=== PATIENT | female | born 1955 | race Asian ===

== ENCOUNTER 2018-11-04 04:15 | Inpatient (IN) | payer BC ==
[~2018-11-04] VITALS: Ht 170.2 cm; Wt 74.8 kg
--- NOTE | 2018-11-04 04:55 | NUR ---
Pt bib family tonight for c/o intermittent feverx1 week. States being treated for ca recently and a uti w/ abx use 2 weeks ago. C/o L flank pain and painful urination. Monitoring applied. Call light within reach. Awaiting md assessment.
[2018-11-04] MEDS ORDERED: ONDANSETRON 2MG/ML, 2ML ONE ×2 (05:25→06:45)
[2018-11-04] MEDS ORDERED: MORPHINE SULFATE 4 MG/ML, 1ML ONE (05:25)
[2018-11-04] MEDS ORDERED: ONDANSETRON 2MG/ML, 2ML IVPush ONE ×2 (05:30→07:00)
[2018-11-04] MEDS ORDERED: MORPHINE SULFATE 4 MG/ML, 1ML IVPush PRN (05:30)
[2018-11-04] MEDS ORDERED: SODIUM CHLORIDE FLUSH 10ML SYR IVF ONE (05:30)
[2018-11-04 05:49] LABS: BASOPHILS % (AUTO) 0 % (0-1); EOSINOPHILS % (AUTO) 1 % (1-7); LYMPHOCYTES # (AUTO) 0.43 x10^3/uL (1-3.4); LYMPHOCYTES % (AUTO) 5 % (22-44); MD NO; MEAN CORPUSCULAR HEMOGLOBIN 31.3 pg (27.0-34.8); MEAN CORPUSCULAR HGB CONC 33.2 g/dL (32.4-35.8); MEAN CORPUSCULAR VOLUME 94.2 fL (80-100); MEAN PLATELET VOLUME 7.2 fL (7.4-10.4); MONOCYTES # (AUTO) 0.45 x10^3/uL (0.2-0.8); MONOCYTES % (AUTO) 5 % (2-9); NEUTROPHILS # (AUTO) 8.55 x10^3/uL (1.8-6.8); NEUTROPHILS % (AUTO) 90 % (42-75); PLATELET COUNT 360 x10^3/uL (130-400); RED BLOOD COUNT 2.89 x10^6/uL (3.82-5.3); RED CELL DISTRIBUTION WIDTH 16.7 % (9.6-15.2)
[2018-11-04 05:52] LABS: MICROSCOPIC AUTO
[2018-11-04 05:54] LABS: CULTURE INDICATED? YES
[2018-11-04 05:58] LABS: ALANINE AMINOTRANSFERASE 14 U/L (12-78); ALBUMIN 3.4 g/dL (3.4-5.0); ANION GAP 7 mmol/L (5-15); CALCIUM 8.9 mg/dL (8.5-10.1); CHLORIDE 106 mmol/L (98-107); CREATININE 1.46 mg/dL (0.55-1.02)
[2018-11-04 06:07] LABS: ALKALINE PHOSPHATASE 124 U/L (45-117); BILIRUBIN,TOTAL 0.3 mg/dL (0.2-1.0)
[2018-11-04] MEDS ORDERED: CEFTRIAXONE PMX 1GM/50ML 50 ML ONE (06:25)
[2018-11-04] MEDS ORDERED: KETOROLAC 30 MG/1 ML ONE (06:25)
[2018-11-04] MEDS ORDERED: KETOROLAC 30 MG/1 ML IVPush ONE (06:30)
[2018-11-04] MEDS ORDERED: CEFTRIAXONE PMX 1GM/50ML 50 ML IV ONE (06:30)
--- NOTE | 2018-11-04 07:00 | NUR ---
RECEIVED REPORT FROM SARA. PT SLEEPING RESP EVEN AND UNLABORED. GAVE FREDDIE CHAIR TO SLEEP.
--- NOTE | 2018-11-04 07:16 | NUR ---
CALLED REPORT TO SAW, PLAN OF CARE DISCUSSED.
[2018-11-04] MEDS ORDERED: DOCU-131 PO (07:36)
[2018-11-04] MEDS ORDERED: ATOR20TA37 PO (07:36)
[2018-11-04] MEDS ORDERED: GLIP10TA24 PO (07:42)
[2018-11-04] MEDS ORDERED: ONDA8TAB15 PO (07:42)
[2018-11-04] MEDS ORDERED: ASPI-650 PO (07:42)
[2018-11-04] MEDS ORDERED: LINA5TAB PO (07:42)
[2018-11-04] MEDS ORDERED: LOSA50TA14 PO (07:42)
[2018-11-04] MEDS ORDERED: HYDR-3237 PO (07:42)
[2018-11-04 08:26] VITALS: BP 127/74
[2018-11-04] MEDS ORDERED: HYDROcodone/APAP 5/325 TABLET PO PRN (10:30)
[2018-11-04] MEDS ORDERED: DOCUSATE 100 MG CAPSULE PO PRN ×2 (10:30)
[2018-11-04] MEDS ORDERED: ONDANSETRON 2MG/ML, 2ML IVPush PRN (10:30)
[2018-11-04] MEDS ORDERED: BISACODYL 10 MG SUPP PR PRN (10:30)
[2018-11-04] MEDS: LACTATED RINGERS 1,000 ML IV SCH ×2 (11:11→20:49)
[2018-11-04] MEDS: LOSARTAN 50MG TABLET PO SCH (11:11)
[2018-11-04] MEDS: HEPARIN 5,000 UNITS/ML, 1ML SQ SCH ×2 (11:15→20:48)
[2018-11-04] MEDS: INSULIN LISPRO 100 UNITS/ML, PEN SQ-INSULIN SCH ×3 (11:40→20:55)
[2018-11-04] MEDS: ACETAMINOPHEN 325 MG TABLET PO PRN ×2 (11:44→21:08)
[2018-11-04 14:29] VITALS: BP 116/65
[2018-11-04 19:37] VITALS: BP 130/70
[2018-11-05 03:31] VITALS: BP 136/71
[2018-11-05 05:22] LABS: BASOPHILS % (AUTO) 0 % (0-1); EOSINOPHILS # (AUTO) 0.06 x10^3/uL (0-0.4); EOSINOPHILS % (AUTO) 1 % (1-7); LYMPHOCYTES # (AUTO) 0.47 x10^3/uL (1-3.4); LYMPHOCYTES % (AUTO) 5 % (22-44); MD NO; MEAN CORPUSCULAR HEMOGLOBIN 31.1 pg (27.0-34.8); MEAN CORPUSCULAR HGB CONC 32.7 g/dL (32.4-35.8); MEAN CORPUSCULAR VOLUME 95.1 fL (80-100); MEAN PLATELET VOLUME 7.6 fL (7.4-10.4); MONOCYTES # (AUTO) 0.65 x10^3/uL (0.2-0.8); MONOCYTES % (AUTO) 7 % (2-9); NEUTROPHILS # (AUTO) 8.14 x10^3/uL (1.8-6.8); NEUTROPHILS % (AUTO) 87 % (42-75); PLATELET COUNT 311 x10^3/uL (130-400); RED BLOOD COUNT 2.65 x10^6/uL (3.82-5.3); RED CELL DISTRIBUTION WIDTH 16.6 % (9.6-15.2)
[2018-11-05 05:36] LABS: ALBUMIN 2.6 g/dL (3.4-5.0); CALCIUM 8.5 mg/dL (8.5-10.1); CHLORIDE 107 mmol/L (98-107)
[2018-11-05 05:40] LABS: ALANINE AMINOTRANSFERASE 9 U/L (12-78); ALKALINE PHOSPHATASE 92 U/L (45-117); ANION GAP 6 mmol/L (5-15); CREATININE 1.68 mg/dL (0.55-1.02); TOTAL PROTEIN 6.7 g/dL (6.4-8.2)
[2018-11-05] MEDS: LACTATED RINGERS 1,000 ML IV SCH (05:50)
[2018-11-05] MEDS: HEPARIN 5,000 UNITS/ML, 1ML SQ SCH ×2 (05:50→14:08)
[2018-11-05] MEDS: CEFTRIAXONE PMX 1GM/50ML 50 ML IV SCH (05:55)
[2018-11-05 06:57] VITALS: BP 119/65
[2018-11-05] MEDS: LINAGLIPTIN 5 MG TAB PO SCH (08:22)
[2018-11-05] MEDS: LOSARTAN 50MG TABLET PO SCH (08:22)
[2018-11-05] MEDS: ATORVASTATIN 20 MG TABLET PO SCH (08:22)
[2018-11-05] MEDS: ASPIRIN 325 MG TABLET EC PO SCH (08:23)
[2018-11-05] MEDS: INSULIN LISPRO 100 UNITS/ML, PEN SQ-INSULIN SCH ×4 (08:28→19:57)
[2018-11-05 14:11] VITALS: BP 149/68
[2018-11-05] MEDS ORDERED: SODIUM CHLORIDE 0.9% 1,000 ML IV SCH (18:00)
[2018-11-05 19:40] VITALS: BP 126/72
[2018-11-05] MEDS: ACETAMINOPHEN 325 MG TABLET PO PRN (19:53)
[2018-11-06 01:50] VITALS: BP 134/75
[2018-11-06 05:02] LABS: ANION GAP 6 mmol/L (5-15); CALCIUM 8.3 mg/dL (8.5-10.1); CHLORIDE 110 mmol/L (98-107); CREATININE 1.44 mg/dL (0.55-1.02)
[2018-11-06 05:05] LABS: BASOPHILS % (AUTO) 0 % (0-1); EOSINOPHILS # (AUTO) 0.09 x10^3/uL (0-0.4); EOSINOPHILS % (AUTO) 1 % (1-7); LYMPHOCYTES # (AUTO) 0.52 x10^3/uL (1-3.4); LYMPHOCYTES % (AUTO) 8 % (22-44); MD NO; MEAN CORPUSCULAR HEMOGLOBIN 31.1 pg (27.0-34.8); MEAN CORPUSCULAR HGB CONC 32.7 g/dL (32.4-35.8); MEAN CORPUSCULAR VOLUME 95.3 fL (80-100); MEAN PLATELET VOLUME 7.3 fL (7.4-10.4); MONOCYTES # (AUTO) 0.48 x10^3/uL (0.2-0.8); MONOCYTES % (AUTO) 7 % (2-9); NEUTROPHILS % (AUTO) 84 % (42-75); PLATELET COUNT 317 x10^3/uL (130-400); RED BLOOD COUNT 2.52 x10^6/uL (3.82-5.3); RED CELL DISTRIBUTION WIDTH 16.8 % (9.6-15.2)
[2018-11-06] MEDS: CEFTRIAXONE PMX 1GM/50ML 50 ML IV SCH (06:04)
[2018-11-06 06:46] VITALS: BP 130/71
[2018-11-06] MEDS: INSULIN LISPRO 100 UNITS/ML, PEN SQ-INSULIN SCH ×4 (07:20→21:00)
[2018-11-06] MEDS: ATORVASTATIN 20 MG TABLET PO SCH (10:03)
[2018-11-06] MEDS: LINAGLIPTIN 5 MG TAB PO SCH (10:04)
[2018-11-06] MEDS: ASPIRIN 325 MG TABLET EC PO SCH (10:04)
[2018-11-06] MEDS: LOSARTAN 50MG TABLET PO SCH (10:04)
[2018-11-06 13:00] VITALS: BP 137/74
[2018-11-06 19:28] VITALS: BP 159/77
[2018-11-07 01:56] VITALS: BP 161/78
[2018-11-07 04:37] LABS: BASOPHILS # (AUTO) 0.01 x10^3/uL (0-0.1); BASOPHILS % (AUTO) 0 % (0-1); EOSINOPHILS % (AUTO) 1 % (1-7); LYMPHOCYTES # (AUTO) 0.66 x10^3/uL (1-3.4); LYMPHOCYTES % (AUTO) 10 % (22-44); MD NO; MEAN CORPUSCULAR HEMOGLOBIN 31.8 pg (27.0-34.8); MEAN CORPUSCULAR HGB CONC 33.3 g/dL (32.4-35.8); MEAN CORPUSCULAR VOLUME 95.5 fL (80-100); MEAN PLATELET VOLUME 7.8 fL (7.4-10.4); MONOCYTES # (AUTO) 0.53 x10^3/uL (0.2-0.8); MONOCYTES % (AUTO) 8 % (2-9); NEUTROPHILS # (AUTO) 5.64 x10^3/uL (1.8-6.8); NEUTROPHILS % (AUTO) 81 % (42-75); PLATELET COUNT 341 x10^3/uL (130-400); RED BLOOD COUNT 2.66 x10^6/uL (3.82-5.3); RED CELL DISTRIBUTION WIDTH 16.7 % (9.6-15.2)
[2018-11-07 04:45] LABS: ANION GAP 7 mmol/L (5-15); CALCIUM 8.5 mg/dL (8.5-10.1); CHLORIDE 106 mmol/L (98-107)
[2018-11-07] MEDS: CEFTRIAXONE PMX 1GM/50ML 50 ML IV SCH (06:14)
[2018-11-07] MEDS: INSULIN LISPRO 100 UNITS/ML, PEN SQ-INSULIN SCH (07:00)
[2018-11-07] MEDS ORDERED: CEFD300C37 PO (07:23)
[2018-11-07 07:46] VITALS: BP 156/72
[2018-11-07] MEDS: ASPIRIN 325 MG TABLET EC PO SCH (07:48)
[2018-11-07] MEDS: LINAGLIPTIN 5 MG TAB PO SCH (07:48)
[2018-11-07] MEDS: ATORVASTATIN 20 MG TABLET PO SCH (07:48)
[2018-11-07] MEDS: LOSARTAN 50MG TABLET PO SCH (07:48)
== END 2018-11-07 09:48 | disposition home or self-care (01) | DRG 872 ==
LOC: ED 05:31 → EDIP 07:01 → 3NW 07:25 → DCLOUNGE 11-07 09:39
PROVIDERS: ADMIT Hospitalist; ATTEND Hospitalist
DX: A41.9 Sepsis, unspecified organism (principal); N13.6 Pyonephrosis; N18.4 Chronic kidney disease, stage 4 (severe); C21.8 Malignant neoplasm of overlapping sites of rectum, anus and anal canal; B96.1 Klebsiella pneumoniae [K. pneumoniae] as the cause of diseases classified elsewhere; E11.22 Type 2 diabetes mellitus with diabetic chronic kidney disease; D63.8 Anemia in other chronic diseases classified elsewhere; T45.1X5A Adverse effect of antineoplastic and immunosuppressive drugs, initial encounter; I12.9 Hypertensive chronic kidney disease with stage 1 through stage 4 chronic kidney disease, or unspecified chronic kidney disease; Z79.84 Long term (current) use of oral hypoglycemic drugs; Z85.048 Personal history of other malignant neoplasm of rectum, rectosigmoid junction, and anus; Z90.710 Acquired absence of both cervix and uterus; Y92.89 Other specified places as the place of occurrence of the external cause
CPT/HCPCS: 36415; 71045; 76770; 80048; 80053; 81001; 82728; 82962; 83540; 83550; 83690; 83735; 84100; 84466; 85018; 85025; 87040; 87077; 87086; 87186; 96365; 96375; 96376; G0378; J0696; J1644; J1885; J2405; J1815; J2270; J7030; J7120